=== PATIENT | male | born 1955 | race Caucasian/White ===

== ENCOUNTER 2022-03-25 02:00 | Day surgery (SDC) | payer OTHER, SELFPAY ==
[2022-03-10 14:46] VITALS: BMI 37.6
[2022-03-25 07:33] VITALS: BP 141/70; PULSE 67; RESP 18; TEMP 35.8; O2SAT 99; BMI 38.2
[2022-03-25] MEDS: LACTATED RINGERS 1,000 ML 150 ML IV CONT (07:54)
--- NOTE | 2022-03-25 08:15 | WPDANESEPPF ---
Anes - Initial Pre Proc Eval Procedure: Operation Date: 03/25/22 08:45 Proposed Procedures p Colonoscopy - Jong Bucio MD Date/Time: 03/25/22 08:15 Surgeon: Jong Bucio MD Pre Op Diagnosis: neoplasm screening Patient Data Age: 66 Gender: M Height: 1.85 m Weight: 131.6 kg Last Vital Signs Temp 96.4 F L 03/25/22 07:33 Pulse 67 03/25/22 07:33 Resp 18 03/25/22 07:33 BP 141/70 H 03/25/22 07:33 Pulse Ox 99 03/25/22 07:33 O2 Del Method Room Air 03/25/22 07:33 Allergies Allergy/AdvReac Type Severity Reaction Status Date / Time No Known Allergies Allergy Verified 03/25/22 07:39 Home Medications Medication Instructions Recorded Confirmed Type aspirin 81 mg tablet,delayed 81 mg PO DAILY 02/08/20 03/25/22 History release (Adult Low Dose Aspirin) ferrous sulfate 325 mg (65 mg 325 mg PO DAILY 02/08/20 03/25/22 History iron) tablet (Feosol) mecobalamin (vitamin B12) 1,000 2,000 mcg PO DAILY 02/08/20 03/25/22 History mcg chewable tablet cholecalciferol (vitamin D3) 10 10 mcg PO DAILY 03/12/21 03/25/22 History mcg (400 unit) capsule allopurinol 100 mg tablet 100 mg PO DAILY #180 tabs 02/14/22 03/25/22 Rx atorvastatin 20 mg tablet 20 mg PO DAILY #90 tabs 02/14/22 03/25/22 Rx enzalutamide 40 mg tablet (Xtandi) 160 mg PO DAILY 02/14/22 03/25/22 History leuprolide acetate (6 month) 45 mg 45 mg subcut [id number] 02/14/22 03/25/22 History (6 month) subcutaneous syringe (Eligard) lisinopril 20 mg tablet 20 mg PO DAILY #90 tabs 02/14/22 03/25/22 Rx clotrimazole-betamethasone 1 1 applic topical BID PRN Rash 03/10/22 03/25/22 History %-0.05 % topical cream furosemide 20 mg tablet (Lasix) 20 mg PO QAM #90 tabs 03/17/22 03/25/22 Rx Patient hx anesthesia problems: none Family hx anesthesia problems: none Results Review: All pre-operative results and documents have been reviewed as part of the pre-operative evaluation. [facility] Past Medical History Medical History Abnormal EKG Dislocation of septal cartilage of nose, initial encounter DVT (deep venous thrombosis) Essential hypertension Gout Heart palpitations ERIK (obstructive sleep apnea) Prostate cancer Screening for colon cancer Family History Family History Father Family history of diabetes mellitus in first degree relative Mother Family history of malignant neoplasm of ovary Social History Social History Smoking status: Never smoker Alcohol intake: current Drinks per week: 6 Alcohol use details: 20-25 drinks per month Substance use: never Substance use type: does not use Living arrangements: with family Occupation/Education: retired Gender identity (if verbalized by the patient): Male Spiritual care concerns: No Anes - Eval Final PreProcedure Day of Procedure 03/25/22 08:15 Patient weight: obese Heart: regular rate and rhythm Lungs: clear to auscultation Airway: Mallampati scale class III Neurological: alert and oriented Last oral intake: >/= 8 hours ASA classification: III Emergent: no Anesthetic plan: proceed Anesthesia type and monitoring: general GIVS and standard monitoring Results Review: All pre-operative results and documents have been reviewed as part of the pre-operative evaluation. Informed Consent: The patient's anesthetic plan and its attendant risks and benefits were discussed with the patient/family/POA. Questions were solicited and answers provided to the satisfaction of the patient/family/POA.
--- NOTE | 2022-03-25 09:02 | PM.HPGS ---
History of Present Illness History of Present Illness Consent: Risks, benefits, and alternatives have been discussed and questions answered. Patient agrees to proceed with procedure. Chief complaint: neoplasm screening Narrative: Iam Zepeda is a 66 year old male here for screening colonoscopy, last one 12 years ago Review of Systems Constitutional: Constitutional: Denies headache(s) and Denies weakness Eyes: Eyes: Denies blurry vision ENT: Reports Normal hearing present, Denies headache(s) and Denies neck pain Cardiovascular: Cardiovascular: Denies chest pain and Denies dyspnea Respiratory: Respiratory: Denies dyspnea Gastrointestinal: Gastrointestinal: Reports no additional gastrointestinal complaints Genitourinary: Genitourinary: Denies dysuria Musculoskeletal: Musculoskeletal: Denies neck pain Integumentary/Breasts: Skin/Breast: Denies dry skin Neurologic: Reports Normal hearing present, Denies headache(s) and Denies weakness Psychiatric: Psychiatric: Denies anxiety Endocrine: Endocrine: Denies change in body appearance Hematologic/Lymphatic: Hematologic/Lymphatic: Denies easy bleeding Allergic/Immunologic: Allergic/Immunologic: Denies urticaria PMFSH Past Medical History Medical History Abnormal EKG Dislocation of septal cartilage of nose, initial encounter DVT (deep venous thrombosis) Essential hypertension Gout Heart palpitations ERIK (obstructive sleep apnea) Prostate cancer Screening for colon cancer Family History Family History Father Family history of diabetes mellitus in first degree relative Mother Family history of malignant neoplasm of ovary Social History Social History Smoking status: Never smoker Alcohol intake: current Drinks per week: 6 Alcohol use details: 20-25 drinks per month Substance use: never Substance use type: does not use Living arrangements: with family Occupation/Education: retired Gender identity (if verbalized by the patient): Male Spiritual care concerns: No Meds Home Medications and Allergies Home Medications Medication Instructions Recorded Confirmed Type aspirin 81 mg tablet,delayed 81 mg PO DAILY 02/08/20 03/25/22 History release (Adult Low Dose Aspirin) ferrous sulfate 325 mg (65 mg 325 mg PO DAILY 02/08/20 03/25/22 History iron) tablet (Feosol) mecobalamin (vitamin B12) 1,000 2,000 mcg PO DAILY 02/08/20 03/25/22 History mcg chewable tablet cholecalciferol (vitamin D3) 10 10 mcg PO DAILY 03/12/21 03/25/22 History mcg (400 unit) capsule allopurinol 100 mg tablet 100 mg PO DAILY #180 tabs 02/14/22 03/25/22 Rx atorvastatin 20 mg tablet 20 mg PO DAILY #90 tabs 02/14/22 03/25/22 Rx enzalutamide 40 mg tablet (Xtandi) 160 mg PO DAILY 02/14/22 03/25/22 History leuprolide acetate (6 month) 45 mg 45 mg subcut [id number] 02/14/22 03/25/22 History (6 month) subcutaneous syringe (Eligard) lisinopril 20 mg tablet 20 mg PO DAILY #90 tabs 02/14/22 03/25/22 Rx clotrimazole-betamethasone 1 1 applic topical BID PRN Rash 03/10/22 03/25/22 History %-0.05 % topical cream furosemide 20 mg tablet (Lasix) 20 mg PO QAM #90 tabs 03/17/22 03/25/22 Rx Allergies Allergy/AdvReac Type Severity Reaction Status Date / Time No Known Allergies Allergy Verified 03/25/22 07:39 Vital Signs Vital Signs - 24 hr 03/25/22 07:33 Temperature 96.4 F L Pulse Rate 67 Respiratory Rate 18 Blood Pressure 141/70 H Pulse Oximetry 99 Oxygen Delivery Room Air Exam Const: General: comfortable and no acute distress HENMT: Face/Nose/Sinus: Normal nares present Eyes: General: appearance normal, both eyes and all related structures Neck: Neck: no JVD Resp: Auscultation: clear to auscultation bilaterally Cardio: Rate: regular rate Rhythm: regular rhy
[2022-03-25 09:32] VITALS: BP 116/70; PULSE 67; RESP 22; O2SAT 92
[2022-03-25 09:42] VITALS: BP 123/72; PULSE 63; RESP 18; O2SAT 97
[2022-03-25 09:52] VITALS: BP 140/80; PULSE 60; RESP 16; O2SAT 100
== END 2022-03-25 10:01 | disposition home or self-care (01) ==
PROVIDERS: PCP Physician Assistant Medical; Visit Provider Internal Medicine Gastroenterology
PROC: 0DJD8ZZ Inspection of Lower Intestinal Tract, Via Natural or Artificial Opening Endoscopic (ICD-10-PCS; CPT 45378; principal; 2022-03-25 08:45)
DX: Z12.11 Encounter for screening for malignant neoplasm of colon (principal); K64.8 Other hemorrhoids; M10.9 Gout, unspecified; I10 Essential (primary) hypertension; Z85.46 Personal history of malignant neoplasm of prostate; Z79.82 Long term (current) use of aspirin; Z79.818 Long term (current) use of other agents affecting estrogen receptors and estrogen levels; E66.9 Obesity, unspecified; Z68.38 Body mass index [BMI] 38.0-38.9, adult; Z86.718 Personal history of other venous thrombosis and embolism
CPT/HCPCS: 45378; J2704; J7120

== ENCOUNTER 2022-05-14 14:16 | Emergency (ER) | payer OTHER, SELFPAY ==
--- NOTE | ~2022-05-14 | XR_ITS ---
EXAMINATION: XR knee LT min 4V DATE: 05/14/2022 15:00 INDICATION: Left knee swelling and erythema. TECHNIQUE: 4 views of left knee were obtained. COMPARISON: None. FINDINGS: Bone alignment is normal. No fracture. There is severe osteoarthritis of lateral compartmen t and mild osteoarthritis of medial and patellofemoral compartments. No knee joint effusion. There is prepatellar soft tissue swelling, consistent with bursitis. IMPRESSION: 1. Prepatellar bursitis. 2. Severe left knee osteoarthritis. Reviewed, dictated and finalized at location A.
[2022-05-14 14:22] VITALS: BP 144/72; PULSE 81; RESP 14; TEMP 37.3; O2SAT 100
--- NOTE | 2022-05-14 14:47 | PC.NURSE ---
Patient off unit to radiology.
--- NOTE | 2022-05-14 14:48 | ED.GENADULT ---
HPI - General Adult General Chief complaint: Skin/Abscess/Foreign Body Stated complaint: knee infection Time Seen by Provider: 05/14/22 14:28 Source: patient and old records reviewed Mode of arrival: ambulatory Limitations: no limitations History of Present Illness HPI narrative: Patient is a 66-year-old male who presents to the ED with report of left knee pain and redness. Patient reports he noticed mild pain to the left knee 1 week ago. Over the last week, it has become increasingly painful, red, warm to his anterior knee. He noticed a small pustule on the anterior knee a few days ago. He was seen by his primary care doctor yesterday at which time the pustule was drained using a 16-gauge needle. Patient was placed on doxycycline 100mg BID and Keflex 500mg BID. He has only had 2 doses of these medications. Patient denied having improvement of his symptoms today, so he returned to his PCP where she then referred him here for further evaluation. Patient denies any fever, nausea, vomiting, known injury to knee. Denies history of diabetes. He has not had a previous knee replacement. He does take immunosuppressive therapy for prostate cancer. Related Data Home Medications Medication Instructions Recorded Confirmed aspirin 81 mg tablet,delayed 81 mg PO DAILY 02/08/20 05/13/22 release (Adult Low Dose Aspirin) ferrous sulfate 325 mg (65 mg 325 mg PO DAILY 02/08/20 05/13/22 iron) tablet (Feosol) mecobalamin (vitamin B12) 1,000 2,000 mcg PO DAILY 02/08/20 05/13/22 mcg chewable tablet cholecalciferol (vitamin D3) 10 10 mcg PO DAILY 03/12/21 05/13/22 mcg (400 unit) capsule enzalutamide 40 mg tablet (Xtandi) 160 mg PO DAILY 02/14/22 05/13/22 leuprolide acetate (6 month) 45 mg 45 mg subcut [id number] 02/14/22 05/13/22 (6 month) subcutaneous syringe (Neovacs) clotrimazole-betamethasone 1 1 applic topical BID PRN Rash 03/10/22 05/13/22 %-0.05 % topical cream Allergies Allergy/AdvReac Type Severity Reaction Status Date / Time No Known Allergies Allergy Verified 05/20/22 09:28 Review of Systems Review of Systems: CONSTITUTIONAL: Denies fever, chills, or sweats. CARDIOVASCULAR: Denies chest pain. RESPIRATORY: Denies dyspnea. GASTROINTESTINAL: Denies abdominal pain, nausea, vomiting. SKIN: See HPI. MUSCULOSKELETAL: See HPI. NEUROLOGIC: Denies tingling, numbness, or weakness. All systems reviewed & are unremarkable except as noted in HPI and below PMFSH Past Medical History Medical History ) Abnormal EKG Dislocation of septal cartilage of nose, initial encounter DVT (deep venous thrombosis) Essential hypertension Gout Heart palpitations ERIK (obstructive sleep apnea) Prostate cancer Screening for colon cancer Surgical History Surgical History ) No pertinent past surgical history Family History Family History ) Father Family history of diabetes mellitus in first degree relative Mother Family history of malignant neoplasm of ovary Social History Social History ) Smoking status: Never smoker Alcohol intake: current Drinks per week: 6 Alcohol use details: 20-25 drinks per month Substance use: never Substance use type: does not use Living arrangements: with family Occupation/Education: retired Gender identity (if verbalized by the patient): Male Spiritual care concerns: No Exam Narrative: GENERAL: Well appearing, obese, non-toxic, in no acute distress. HEAD: Normocephalic, atraumatic. NECK: Supple. No adenopathy, no masses. RESPIRATORY: Airway patent, respirations nonlabored. Clear to auscultation bilaterally, no rales, rhonchi, wheezing. CARDIOVASCULAR: Regular rate and rhythm without murmurs, rubs, or gallops. Pedal pulses 2+ and equal bilaterally. MUSCULOSKELETAL:
--- NOTE | 2022-05-14 14:56 | PC.NURSE ---
EDP at bedside to assess pt.
[2022-05-14 15:24] LABS: Basophils Absolute Auto 0.1 K/mm3 (0.0-0.1); Basophils Percent Auto 0.5 % (0.2-1.2); Eosinophils Absolute Auto 0.2 K/mm3 (0-0.3); Eosinophils Percent Auto 1.6 % (0-4.4); Hematocrit 38.5 % (42.0-52.0); Hemoglobin 12.4 g/dL (14.0-18.0); Immature Granulocyte Absolute 0.04 K/mm3 (0.00-0.031); Immature Granulocyte Percent A 0.4 % (0-0.5); Lymphocytes Absolute Auto 1.62 K/mm3 (0.9-3.2); Lymphocytes Percent Auto 15.7 % (18.3-44.2); Mean Corpuscular HGB Conc 32.2 g/dl (32-36); Mean Corpuscular Volume 99.5 fl (80-100); Mean Platelet Volume 8.7 fl (7.4-10.4); Monocytes Absolute Auto 1.5 K/mm3 (0.1-0.6); Monocytes Percent Auto 14.9 % (2.6-8.5); Neutrophils Absolute Auto 6.9 K/mm3 (1.3-6.7); Neutrophils Percent Auto 66.9 % (45.5-73.1); Platelet Count Result 304 k/mm3 (150-375); Red Blood Count 3.87 M/mm3 (4.6-6.20); Red Cell Distribution Width 14.9 % (11.5-14.5); White Blood Count 10.3 K/mm3 (4.5-10.0)
[2022-05-14 15:40] LABS: Alanine Aminotransferase 21 U/L (6-50); Alkaline Phosphatase 86 U/L (38-126); Anion Gap 6 mmol/L (8-16); Aspartate Amino Transferase 21 U/L (17-59); Bilirubin,Total 0.5 mg/dL (0.2-1.3); Blood Urea Nitrogen 16 mg/dL (9-20); Calcium 8.7 mg/dL (8.4-10.2); Carbon Dioxide 29 mmol/L (22-30); Chloride 106 mmol/L (98-107); Estimated CRCL calculation 104 ml/min; Estimated Glomerular Filt Rate > 60; Glucose 126 mg/dL (65-110); Potassium 4.2 mmol/L (3.4-5.0); Sodium 141 mmol/L (137-145)
[2022-05-14 15:56] LABS: CRP 23.3 mg/dL (<1.0)
[2022-05-14 16:15] LABS: Erythrocyte Sedimentation Rate 62 mm/hr (0-20)
[2022-05-14] MEDS: ceFAZolin SODIUM 1 GM VIAL IM (16:24)
[2022-05-14] MEDS: WATER, STERILE FOR INJECTION 10 ML VIAL XX (16:25)
[2022-05-14] MEDS: LIDOCAINE HCL 1% LOCAL INJ 10 ML VIAL 5 ML INFILTRATE (16:27)
[2022-05-14 16:46] VITALS: TEMP 37.6
[2022-05-14] MEDS: NAPROXEN 250 MG TABLET PO (17:35)
== END 2022-05-14 17:48 | disposition home or self-care (01) ==
PROVIDERS: Emergency Provider Physician Assistant; PCP Physician Assistant Medical
DX: M70.42 Prepatellar bursitis, left knee (principal); L03.116 Cellulitis of left lower limb; L02.416 Cutaneous abscess of left lower limb; I10 Essential (primary) hypertension; M10.9 Gout, unspecified; G47.33 Obstructive sleep apnea (adult) (pediatric); Z85.46 Personal history of malignant neoplasm of prostate; Z86.718 Personal history of other venous thrombosis and embolism; M17.12 Unilateral primary osteoarthritis, left knee
CPT/HCPCS: 10060; 36415; 73564; 80053; 85025; 85652; 86140; 87070; 87147; 87181; 87186; 87205; 96372; 99283; A9270; J0690

== ENCOUNTER 2024-03-30 13:03 | Outpatient (CLI) | payer MEDICARE, SELFPAY ==
--- NOTE | ~2024-03-30 | DEXA_ITS ---
Bone Density Report Name: RUTHIE COTTO Age: 68 Sex: Male Ethnicity: White Date of : 1955 Indication: cancer; Referring Provider: JUDIE HOUGH Study: Bone densitometry was performed. Exam Date: March 30, 2024 Accession number: [id number] Bone Density: Region BMD T-score Z-score Classification AP Spine(L1-L4) 0.948 -1.3 -0.5 Osteopenia Femoral Neck (Left) 0.792 -1.0 0.1 Normal Total Hip (Left) 1.053 0.1 0.7 Normal Femoral Neck (Right) 0.773 -1.2 -0.1 Osteopenia Total Hip (Right) 1.065 0.2 0.8 Normal Femoral Neck Mean 0.783 -1.1 0.0 Osteopenia Total Hip Mean 1.059 0.2 0.7 Normal World Health Organization criteria for BMD impression classify patients as: Normal (T-score at or above -1.0), Osteopenia (T-score between -1.0 and -2.5), or Osteoporosis (T-score at or below -2.5). 10-year Fracture Risk(1): Major Osteoporotic Fracture 4.8% Hip Fracture 0.6% Reported Risk Factors: [place] (), Neck BMD=0.773, BMI=38.3 Input outside FRAX(R) limits. Adjusted to:Bndzrl=788 kg (1) FRAX(R) Version 3.08. Fracture probability calculated for an untreated patient. Fracture probability may be lower if the patient has received treatment. Clinical Information Provided by Patient: Has used the following medications: Vitamin D, Calcium Has the following medical conditions: Cancer Patient maximum height was 73 No regular weight bearing exercise Drinks caffeinated beverages Impression: The patient has low bone mass, based on the Total Spine T-score. Discussion: BONE DENSITY IS LOW AT ONE OR MORE SKELETAL SITES. This patient's lowest T-score is low at one or more skeletal sites. It meets the World Health Organization's (WHO) criteria for ?low bone mass? (T-score between -1.0 and -2.5). The patient's 10-year risk of fracture as calculated by FRAX is less than the threshold where pharmacological therapy is recommended by the National Osteoporosis Foundation (NOF). However, all treatment decisions require clinical judgment and consideration of individual patient factors, including patient preferences, comorbidities, previous drug use, risk factors not captured in the FRAX model (e.g., frailty, falls, vitamin D deficiency, increased bone turnover, interval significant decline in bone density) and possible under or overestimation of fracture risk by FRAX. The patient should follow a healthful lifestyle (good nutrition with adequate calcium and vitamin D, and appropriate weight-bearing exercise). Follow-Up: Consider repeating this study in 2 to 3 years to reassess this patient's status, or sooner if there is some new clinical indication. Reported by: TOSHIA on 03/30/2024 1:38:00 PM. Reviewed, dictated and finalized at location A.
--- OUTSIDE RECORDS SUMMARY | 2024-03-30 13:14 | XMS_ITS | Encounter Summary ---
Author Organization [facility] Address [address] [place] [address] Care Team Providers Care Red Mud Thickener Operator Name Role Phone Dhaval Zaidi MD Unavailable [phone] Giovanny George DO Primary Care Provider [phone] Davion Murdock MD Unavailable [phone] Encounter Details Date Type Department Care Team (Late st Contact Info) Description 03/30/2024 7:55 AM INSTRUCTOR PHYSICAL EDUCATION Hospital Encounter [facility] [address] [place], [place] [id number] Davion Murdock MD [address] [facility] [address] [place] [address] Arrived Social History Tobacco Use Types Packs/Day Years Used Date Smoking Tobacco: Never Smokeless Tobacco: Never Alcohol Use Standard Drinks/Week Comments Yes 0 (1 standard drink = 0.6 oz pur e alcohol) 6-8 per week Sex and Gender Information Value Date Recorded Sex Assigned at Not on file Legal Sex Male 8:27 AM INSTRUCTOR PHYSICAL EDUCATION Gender Identity Male 05/13/2021 9:55 AM CDT Sexual Orientation Straight 05/13/2021 9: 55 AM CDT documented as of this encounter Plan of Treatment Pending Results Name Type Priority Associated Diagnoses Date /Time TESTOSTERONE, TOTAL Lab Routine Malignant neoplasm of prostate (CMS/HCC HHS/HCC) 03/30/2024 8:14 AM INSTRUCTOR PHYSICAL EDUCATION Scheduled Orders Name Type Priority Associated Diagnoses Orde r Schedule TESTOSTERONE, TOTAL Lab Routine Malignant neoplasm of prostate (CMS/HCC HHS/HCC) Once for 1 Occurrences starting 03/30/2024 until 03/30/2024 documented as of this encounter Procedures Procedure Name Priority Date/Time Associated Diagnosis Comments PROSTATE SPECIFIC ANTIGEN,TOTAL Routine 03/30/2024 8:14 AM INSTRUCTOR PHYSICAL EDUCATION Malignant neoplasm of prostate (CMS/HCC HHS/HCC) documented in this encounter Results * PROSTATE SPECIFIC ANTIGEN,TOTAL (03/30/2024 8:14 AM INSTRUCTOR PHYSICAL EDUCATION) PSA <0.13 <4.00 NG/ML 03/30/2024 8:48 AM INSTRUCTOR PHYSICAL EDUCATION [facility] Comment: Test was performed using the Siemens method. Results obtained with other assay methods or kits cannot be used interchangeably with results obtained by the Siemens method. 03/30/2024 8:14 AM INSTRUCTOR PHYSICAL EDUCATION Davion Murdock MD LABORATORY Final Result Performing Organization Address City/State/[facility] Co de Phone Number [facility] [address] [place] [address], documented in this encounter Visit Diagnoses Diagnosis Malignant neoplasm of prostate (CMS/HCC HHS/HCC) Malignant neoplasm of prostate documented in this encounter Care Teams Red Mud Thickener Operator Relationship Specialty Start Date End Date Giovanny George DO [address] [place] [address] PCP - General INTERNAL MEDICINE 03/30/24 Dhaval Zaidi MD [facility]. [address] [place], [place] [id number] [place] Machine Operator Replanter CARDIOVASCULAR DISEASE 07/11/15 Davion Murdock MD [address] [facility] [address] [place] [address] UROLOGY 03/30/24 documented as of this encounter
--- OUTSIDE RECORDS SUMMARY | 2024-03-30 13:14 | XMS_ITS | Encounter Summary ---
Author Organization [facility] Address [facility] [place] [address] Care Team Providers Care Pleat Taper Name Role Phone Lia Stovall Primary Care Provider Dhaval Zaidi MD Unavailable [phone] Jorge Luis Garcia MD Primary Care Provider [phone] Giovanny George DO Primary Care Provider [phone] Davion Murdock MD Unavailable [phone] Encounter Details Date Type Department Care Team (Late st Contact Info) Description 12/26/2015 Abstract [facility] AT [address] [address] Rex Yin MA Social History Tobacco Use Types Packs/Day Years Used Date Smoking Tobacco: Never Assessed Sex and Gender Information Value Date Recorded Sex Assigned at Not on file Legal Sex Male 8:27 AM TREASURY CONSULTANT Gender Identity Male 05/13/2021 9:55 AM CDT Sexual Orientation Straight 05/13/2021 9: 55 AM CDT documented as of this encounter Progress Notes * NANCY Wilson - 12/26/2015 5:09 PM CST PG pt send letter continue current meds SURY CONSULTANT documented in this encounter Plan of Treatment Not on file documented as of this encounter Procedures Procedure Name Priority Date/Time Associated Diagnosis Comments CBC (OUTSIDE LAB) Routine 12/25/2015 PROSTATE SPECIFIC ANTIGEN,TOTAL Routine 12/25/2015 COMPREHENSIVE METABOLIC PANEL Routine 12/25/2015 LIPID PANEL Routine 12/25/2015 THYROID STIM HORMONE TSH Routine 12/25/2015 documented in this encounter Results * PROSTATE SPECIFIC ANTIGEN,TOTAL (12/25/2015) PSA 0.2 12/25/2015 [facility] LABORATORY Final Result * CBC (OUTSIDE LAB) (12/25/2015) WBC 6.1 HGB 15.0 HCT 46.4 PLT 288 12/25/2015 [facility] LAB-OUTSIDE/ABSTRACTED Final Result * THYROID STIM HORMONE, TSH (12/25/2015) TSH 1.55 12/25/2015 [facility] Edited Resul t - Final * COMPREHENSIVE METABOLIC PANEL (12/25/2015) SODIUM S/P/B 142 POTASSIUM S/P/B 4.4 CO2 29 CHLORIDE S/P/B 107 GLUCOSE 84 CALCIUM S/P/B 9.2 BUN 15 CREATININE S/P/B 0.73 EGFR AFR. AMER. 119 EGFR NON-AFR. AMER. 102 ALKALINE PHOSPHATASE S/P/B 67 ALT 27 AST 22 BILIRUBIN TOTAL S/P/B 0.5 ALBUMIN S/P/B 4.2 3.5 - 5.0 TOTAL PROTEIN S/P/B 7.1 GLOBULIN 2.9 URIC ACID 4.3 12/25/2015 [facility] LABORAT[facility] Edited Resul t - Final * LIPID PANEL (12/25/2015) CHOLESTEROL 150 HDL 40 TRIGLYCERIDES 114 NON HDL CHOLESTEROL 110 LDL (CALCULATED) 87 12/25/2015 [facility] LABORAT[facility] Edited Resul t - Final documented in this encounter Visit Diagnoses Not on filedocumented in this encounter Care Teams Pleat Taper Relationship Specialty Start Date End Date Lia Stovall PA PCP - General 07/11/15 01/10/16 Jorge Luis Garcia MD Three [facility]. [address] [place] [address] PCP - General 01/11/16 03/29/24 Giovanny George DO [address] [place], [place] [phone] PCP - General INTERNAL MEDICINE 03/30/24 Dhaval Zaidi MD [facility] [address] [place], [place] [id number] [employer] Certified Network Associate CARDIOVASCULAR DISEASE 07/11/15 Davion Murdock MD 3 [facility] [address] [place], [place] [id number] UROLOGY 03/30/24 documented as of this encounter
--- OUTSIDE RECORDS SUMMARY | 2024-03-30 13:14 | XMS_ITS | Encounter Summary ---
Author Organization [facility] Address [address] [place] [address] Care Team Providers Care Telecommunications Field Engineer Name Role Phone Dhaval Zaidi MD Unavailable [phone] Giovanny George DO Primary Care Provider [phone] Davion Murdock MD Unavailable [phone] Encounter Details Date Type Department Care Team (Latest Contact Info) Description 03/30/2024 Travel Social History Tobacco Use Types Packs/Day Years Used Date Smoking Tobacco: Never Smokeless Tobacco: Never Alcohol Use Standard Drinks/Week Comments Yes 0 (1 standard drink = 0.6 oz pur e alcohol) 6-8 per week Sex and Gender Information Value Date Recorded Sex Assigned at Not on file Legal Sex Male 8:27 AM COAT CUTTER Gender Identity Male 05/13/2021 9:55 AM CDT Sexual Orientation Straight 05/13/2021 9: 55 AM CDT documented as of this encounter Plan of Treatment Not on file documented as of this encounter Visit Diagnoses Not on filedocumented in this encounter Care Teams Telecommunications Field Engineer Relationship Specialty Start Date End Date Giovanny George DO [address] [facility] [address] [place], [place] [phone] PCP - General INTERNAL MEDICINE 03/30/24 Dhaval Zaidi MD [address] [place] [address] [place] Director Mortgage CARDIOVASCULAR DISEASE 07/11/15 Davion uMrdock MD [address] [facility] [address] [place], [place] [address] UROLOGY 03/30/24 documented as of this encounter
--- OUTSIDE RECORDS SUMMARY | 2024-03-30 13:14 | XMS_ITS | Clinical Summary ---
Author Organization [facility] Address [address] [place] [address] Care Team Providers Care Alodize Machine Operator Name Role Phone Dhaval Zaidi MD Unavailable [phone] Giovanny George DO Primary Care Provider [phone] Davion Murdock MD Unavailable [phone] Allergies No known active allergies Medications lisinopril 20 MG tablet Take 1 tablet every day 12/20/2015 Active atorvastatin 20 MG tablet Take 1 tablet at bedtime 12/20/2015 Active ULORIC 80 MG Tab Take 1 tablet daily 12/20/2015 Active aspirin 81 MG chewable tablet Take 1 tablet daily 12/28/2015 Active ferrous sulfate 324 (65 FE) MG tablet Take 1 tablet daily 12/28/2015 Active vitamin B-12 1000 MCG tablet Take 1 tablet (1,000 mcg total) by mouth daily. 12/28/2015 Active Cholecalciferol (VITAMIN D3) 2000 UNITS Tab Take 1 tablet daily 12/28/2015 Active Active Problems Problem Noted Date Diagnosed Date Hyperlipidemia, mixed 12/28/2015 H/O blood clots Essential hypertension Encounters Date Type Department Care Team Description 03/30/2024 7:55 AM CLINICAL LAB CLERK Hospital Encounter [facility] [address] [place] [address] Davion Murdock MD Arrived 03/30/[address] [facility] [address] [place] [address] Davion Murdock MD 03/30/2024 Travel from Last 3 Months Immunizations Name Administration Dates Next Due MODERNA COVID-19 (12+) MRNA, LNP-S, PF, 100 MCG/ 0.5 ML DOSE 05/18/2020,04/20/2020 Tdap (Boostrix) 07/01/2023 Family History Medical History Relation Comments bypass Brother Stent Cardiac Father Relation Status Comments Brother Father Social History Tobacco Use Types Packs/Day Years Used Date Smoking Tobacco: Never Smokeless Tobacco: Never Alcohol Use Standard Drinks/Week Comments Yes 0 (1 standard drink = 0.6 oz pur e alcohol) 6-8 per week Sex and Gender Information Value Date Recorded Sex Assigned at Not on file Legal Sex Male 8:27 AM CLINICAL LAB CLERK Gender Identity Male 05/13/2021 9:55 AM CDT Sexual Orientation Straight 05/13/2021 9: 55 AM CDT Last Filed Vital Signs Vital Sign Reading Time Taken Comments Blood Pressure 133/82 07/01/2023 5:18 PM CDT Pulse 75 07/01/2023 5:18 PM CDT Temperature 36 C (96.8 F) 07/01/2023 4:42 PM CDT Respiratory Rate 12 07/01/2023 4:42 PM CDT Oxygen Saturation 99% 07/01/2023 5:18 PM CDT Inhaled Oxygen Concentration - - Weight 130.2 kg (287 lb) 07/01/2023 4:39 PM CDT Height 185.4 cm (6' 1 ) 07/01/2023 4:39 PM CDT Body Mass Index 37.87 07/01/2023 4:39 PM CDT Plan of Treatment Health Maintenance Due Date Last Done Comments Colorectal Cancer Screening Colonoscopy (10 Years) 1955 Hepatitis C 11/12/1975 Zoster Vaccines (2 of 2) 05/23/2020 03/28/2020 Annual Medicare Wellness Visit 2022 Pneumococcal Vaccine: 65+ Years (1 of 1 - PCV) 2022 COVID-19 Vaccine (3 - 2023-2 5 season) 2023 05/18/2020, 04/20/2020 Influenza Adult (#1) 2023 RSV Immunization or 60+ Years (1 - 1-dose 75+ series) 2032 DTaP, Tdap and Td Vaccines ( 2 - Td or Tdap) 06/30/2033 07/01/2023 Meningococcal B Vaccine Aged Out No l onger eligible based on patient's age to complete this topic Meningococcal Vaccine Aged Out No sahra adele eligible based on patient's age to complete this topic RSV Immunizations Under 20 Months Aged Out No longer eligible b ased on patient's age to complete this topic Procedures Procedure Name Priority Date/Time Associated Diagnosis Comments PROSTATE SPECIFIC ANTIGEN,TOTAL Routine 03/30/2024 8:14 AM CLINICAL LAB CLERK Malignant neoplasm of prostate ([facility]) from Last 3 Months Results * PROSTATE SPECIFIC ANTIGEN,TOTAL (03/30/2024 8:14 AM CLINICAL LAB CLERK) PSA <0.13 <4.00 NG/ML 03/30/2024 8:48 AM CLINICAL LAB CLERK [facility] Comment: Test was performed using the Siemens method. Results obtained with other assay methods or kits cannot be used interchangeably with results obtained by the Siemens method. 03/30/2024 8:14 AM CLINICAL LAB CLERK Davion Murdock MD LABORATORY Final Result [facility] [address] [place] [address], from Last 3 Months Insurance GERMAINE [facility] Care Teams Alodize Machine Operator Relationship Specialty Start Date End Date Giovanny George DO [address] [place], [place] [phone] PCP - General INTERNAL MEDICINE 03/30/24 Dhaval Zaidi MD [facility]. [address] [place] [address] [place] Food Adviser CARDIOVASCULAR DISEASE 07/11/15 Davion Murdock MD [facility] [address] [place] [address] UROLOGY 03/30/24
--- OUTSIDE RECORDS SUMMARY | 2024-03-30 13:14 | XMS_ITS | Encounter Summary ---
Author Organization [facility] Address [address] [place] [address] Care Team Providers Care Cleaner Assistant Name Role Phone Dhaval Zaidi MD Unavailable [phone] Giovanny George DO Primary Care Provider [phone] Davion Murdock MD Unavailable [phone] Encounter Details Date Type Department Care Team (Late st Contact Info) Description 03/30/2024 Orders Only [facility] [address] [place], [place] [id number] Davion Murdock MD [address] [facility] [address] [place] [id number] Social History Tobacco Use Types Packs/Day Years Used Date Smoking Tobacco: Never Smokeless Tobacco: Never Alcohol Use Standard Drinks/Week Comments Yes 0 (1 standard drink = 0.6 oz pur e alcohol) 6-8 per week Sex and Gender Information Value Date Recorded Sex Assigned at Not on file Legal Sex Male 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 Gender Identity Male 05/13/2021 9:55 AM CDT Sexual Orientation Straight 05/13/2021 9: 55 AM CDT documented as of this encounter Plan of Treatment Pending Results Name Type Priority Associated Diagnoses Date /Time TESTOSTERONE, TOTAL Lab Routine Malignant neoplasm of prostate (CMS/HCC HHS/HCC) 03/30/2024 8:14 AM DOUBLE CUT OFF SAW OPERATOR Scheduled Orders Name Type Priority Associated Diagnoses Orde r Schedule TESTOSTERONE, TOTAL Lab Routine Malignant neoplasm of prostate (CMS/HCC HHS/HCC) 1 Occurrences starting 03/30/2024 until 03/30/2025 documented as of this encounter Results * PROSTATE SPECIFIC ANTIGEN,TOTAL (03/30/2024 8:14 AM DOUBLE CUT OFF SAW OPERATOR) PSA <0.13 <4.00 NG/ML 03/30/2024 8:48 AM DOUBLE CUT OFF SAW OPERATOR [facility] Comment: Test was performed using the Siemens method. Results obtained with other assay methods or kits cannot be used interchangeably with results obtained by the Siemens method. 03/30/2024 8:14 AM DOUBLE CUT OFF SAW OPERATOR Davion Murdock MD LABORATORY Final Result [facility] [address] [place] [address], documented in this encounter Visit Diagnoses Diagnosis Malignant neoplasm of prostate ([facility] HHS/HCC)- Primary Malignant neoplasm of prostate documented in this encounter Care Teams Cleaner Assistant Relationship Specialty Start Date End Date Giovanny George DO [address] [place], [place] [id number] PCP - General INTERNAL MEDICINE 03/30/24 Dhaval Zaidi MD [facility]. [address] [place], [place] [address] [place] [facility] CARDIOVASCULAR DISEASE 07/11/15 Davion Murdock MD [address] [facility] [address] [place], [place] [id number] UROLOGY 03/30/24 documented as of this encounter
== END 2024-03-30 13:04 | disposition home or self-care (01) ==
PROVIDERS: PCP Nurse Practitioner Family; Visit Provider Urology
DX: M85.89 Other specified disorders of bone density and structure, multiple sites (principal)
CPT/HCPCS: 77080

== ENCOUNTER 2024-10-12 07:13 | Outpatient (CLI) | payer MEDICARE, SELFPAY ==
--- NOTE | ~2024-10-12 | NM_ITS ---
EXAMINATION: NM perez stress w perfusion DATE: 10/12/2024 09:55 INDICATION: Atherosclerotic heart disease TECHNIQUE: Rest images were obtained following intravenous administration of 10.4 mCi Tc99m tetrofosmin (Myoview). The patient was infused intravenously with Lexiscan (Regadenoson). Then, 31.8 mCi Tc99m tetrofosmin (Myoview) was administered intravenously, and stress images were obtained. Data was yoly nstructed into short axis and horizontal and vertical long axis SPECT images. Gated SPECT images were also obtained. COMPARISON: None. FINDINGS: There is no definite reversible or fixed perfusion abnormality to suggest ischemia or infarction. There is normal left ventricular chamber size, wall motion and ejection fraction. Left ventricular ejection fraction measures >70%. IMPRESSION: 1. Normal myocardial perfusion at rest and during stress. 2. Left ventricular ejection fraction measuring >70%. Reviewed, dictated and finalized at location A.
--- NOTE | 2024-10-12 08:06 | EST_ITS ---
Patient Info Name: Iam Zepeda Age: 68 years : 1955 Gender: Male Ht: 73 in Wt: 300 lbs BSA: 2.70 m2 HR: 47 bpm BP: 143 / 68 mmHg Exam Date: 10/12/2024 8:06 AM Patient Status: O Admit Date: 10/12/2024 Exam Type: CA stress perez w NM A regadenoson stress test was performed. Staff Referring Physician: Giovanny George DO Attending Provider: Giovanny George DO Exercise Technologist: Corinne Hu Summary 1. 1. Negative lexiscan stress test for ischemic ST changes by ECG criteria. 2. 2. Baseline hypertension. 3. 3. Nuclear scan to follow and will be reported separately. Please correlate with it. 4. 4. Patient informed of the above results. Protocol: Lexiscan Stress ECG Details Stage: REST Duration (min): 0 min : 59 sec HR (bpm): 52 SBP (mmHg): 143 DBP (mmHg): 68 Stage: REST Duration (min): 3 min : 18 sec HR (bpm): 52 SBP (mmHg): 143 DBP (mmHg): 68 Stage: STAGE 1 Duration (min): 1 min : 0 sec HR (bpm): 64 SBP (mmHg): 145 DBP (mmHg): 84 Stage: RECOVERY Duration (min): 1 min : 0 sec HR (bpm): 69 SBP (mmHg): 145 DBP (mmHg): 84 Stage: RECOVERY Duration (min): 2 min : 0 sec HR (bpm): 66 SBP (mmHg): 145 DBP (mmHg): 84 Stage: RECOVERY Duration (min): 3 min : 0 sec HR (bpm): 62 SBP (mmHg): 145 DBP (mmHg): 84 Stage: RECOVERY Duration (min): 3 min : 7 sec HR (bpm): 61 SBP (mmHg): 143 DBP (mmHg): 74 Rest HR: 52 bpm Peak HR: 69 bpm Rest Sys BP: 143 mmHg Peak Sys BP: 145 mmHg Max Pred HR: 154 bpm % Max Pred HR: 45 % Target HR: 131 bpm Max RPP: 10,005 bpm*mmHg Termination Reason: Completed protocol Cardiac Symptoms: Shortness of breath Total Time: 1 min : 0 sec Rest Britt BP: 68 mmHg Peak Britt BP: 84 mmHg Total Dose: 0.4 mg Resting ECG Sinus bradycardia. Stress ECG No ST changes. Arrhythmias None. Report Signatures
== END 2024-10-12 07:14 | disposition home or self-care (01) ==
PROVIDERS: PCP Physician Assistant Medical; Visit Provider Internal Medicine Cardiovascular Disease
DX: I25.10 Atherosclerotic heart disease of native coronary artery without angina pectoris (principal)
CPT/HCPCS: 78452; 93017; A9502; J2785